=== PATIENT | male | born 1960 | race Caucasian/White ===

== ENCOUNTER 2018-01-04 13:21 | Emergency (ER) | payer OTHER ==
[2018-01-04 13:27] VITALS: BP 140/71
[2018-01-04] MEDS ORDERED: TETANUS/DIPHTHERIA/PERTUSSIS 0.5 ML SYRINGE IM ONE (14:31)
--- NOTE | 2018-01-04 14:32 | ED Physician Documentation ---
PD HPI HEAD INJURY - Stated complaint Stated Complaint: HEAD LAC - Chief complaint Chief Complaint: Laceration - History obtained from History obtained from: Patient - History of Present Illness Mechanism of head injury: Other (stood up and hit head on edge of mantle) Where head injury occurred: Home Timing - onset: How many hours ago (1) Pain level max: 4 Pain level now: 4 Location of injury: Top Quality of pain: Aching Associated symptoms: No: LOC, AMS, Amnesia, Nausea / vomiting, Neck pain, Paresthesias, Seizures, Ear drainage, Nasal drainage Symptoms improve with: Rest Symptoms worsen with: Palpation Contributing factors: No: Anticoagulated, Intoxicated Similar symptoms before: Has not had sx before Recently seen: Not recently seen Review of Systems Constitutional: denies: Fever, Chills Respiratory: denies: Cough GI: denies: Vomiting, Diarrhea Skin: denies: Rash Musculoskeletal: denies: Neck pain, Back pain Neurologic: denies: Focal weakness, Numbness, Altered mental status, LOC PD PAST MEDICAL HISTORY - Past Medical History Past Medical History: Yes Cardiovascular: High cholesterol Respiratory: None Endocrine/Autoimmune: None GI: None : None HEENT: None Psych: None Musculoskeletal: Chronic back pain, Other Derm: None - Past Surgical History Past Surgical History: Yes General: Hiatal hernia repair HEENT: Tonsil/Adenoidectomy - Present Medications Home Medications: Ambulatory Orders Medication Instructions Recorded Confirmed Aspirin 01/04/18 Furosemide [Lasix] 01/04/18 Metoprolol Succinate 50 mg PO 01/04/18 01/04/18 Valsartan [Diovan] 01/04/18 - Allergies Allergies/Adverse Reactions: Allergies Allergy/AdvReac Type Severity Reaction Status Date / Time No Known Drug Allergies Allergy Verified 01/04/18 13:27 - Social History Does the pt smoke?: No Smoking Status: Never smoker Does the pt drink ETOH?: Yes ETOH Use: Beer, Liquor Does the pt have substance abuse?: No - Immunizations Immunizations are current?: Yes Immunizations: TDAP current <10years - POLST Patient has POLST: No PD ED PE NORMAL - Vitals Vital signs reviewed: Yes - General General: Alert and oriented X 3, No acute distress - HEENT HEENT: PERRL, EOMI, Moist mucous membranes, Other (2cm linear laceration to top of head. No scalp hematomas. No palpable skull fractures) - Neck Neck: Supple, no meningeal sign, No bony TTP - Cardiac Cardiac: RRR - Respiratory Respiratory: No respiratory distress, Clear bilaterally - Derm Derm: Warm and dry - Neuro Neuro: Alert and oriented X 3, toeing stockings 2-12 intact, No motor deficit, No sensory deficit Eye Opening: Spontaneous Motor: Obeys Commands Verbal: Oriented GCS Score: 15 Results - Vitals Vitals: Vital Signs - 24 hr 01/04/18 13:24 Temperature 36.5 C Heart Rate 58 L Respiratory 20 Rate Blood Pressure 140/71 H O2 Saturation 100 Oxygen O2 Source Room air Procedures - Laceration (location) scalp Length in cm: 2 Wound type: Linear, Into subcut fat Neurovascular status: Sensory intact, Vascular intact Wound Preparation: Irrigated copiously NS Skin layer closure: Alexa (2) Other: Patient tolerated well, No complications, Tetanus UTD Complexity: Simple PD MEDICAL DECISION MAKING - ED course Complexity details: considered differential, d/w patient ED course: Patient with a scalp laceration. Repaired with alexa. Tolerated well. Tetanus is up-to-date. No evidence of intracranial hemorrhage or skull fracture that required intervention or repair. Head injury instructions given at bedside. Warnings of infection and instructions on wound care given at bedside. Patient counseled regarding signs and symptoms for which I believe and urgent re-evaluation would be necessary. Patient with good understanding of and agreement to plan and is comfortable going home at this time This document was made in part using voice recognition software. While efforts are made to proofread this document, sound alike and grammatical errors may occur. - Sepsis Event Vital Signs: Vital Signs - 24 hr 01/04/18 13:24 Temperature 36.5 C Heart Rate 58 L Respiratory 20 Rate Blood Pressure 140/71 H O2 Saturation 100 Oxygen O2 Source Room air Departure - Departure Disposition: 01 Home, Self Care Clinical Impression: Scalp laceration Qualifiers: Encounter type: initial encounter Qualified Code(s): S01.01XA - Laceration without foreign body of scalp, initial encounter Condition: Good Instructions: ED Laceration Scalp Stitch Or Stap Follow-Up: ANGEL ROUSSEAU [Primary Care Provider] - (in 10-14 days for staple removal) Comments: Follow-up with your doctor in 10-14 days for staple removal. Return if you worsen. Return especially for redness, swelling or drainage from the wound. Discharge Date/Time: 01/04/18 14:47
== END 2018-01-04 14:47 | disposition home or self-care (01) ==
LOC: ED 13:21
DX: S01.01XA Laceration without foreign body of scalp, initial encounter (principal); W22.8XXA Striking against or struck by other objects, initial encounter; Y93.89 Activity, other specified; Y92.009 Unspecified place in unspecified non-institutional (private) residence as the place of occurrence of the external cause
CPT/HCPCS: 12001; 90471; 99282; 99283

== ENCOUNTER 2018-12-09 10:54 | Observation (INO) | payer OTHER ==
--- NOTE | 2018-12-09 11:20 | ED Physician Documentation ---
PD HPI SYNCOPE - Stated complaint Stated Complaint: NEAR SYNCOPE - Chief complaint Chief Complaint: Neuro - History obtained from History obtained from: Patient - History of Present Illness Witnessed: Unwitnessed Timing - onset: Last night Duration: Unknown Preceding symptoms: Light headed, Generalized weakness, Other (He states he did notice his blood pressure to be lower than usual at 88 systolic prior to going to bed last night. He states his blood pressures typically 110 systolic. Sometimes it will be even to 100.). No: Headache, Chest pain, Abdominal pain Associated symptoms: No: Headache, Chest pain, Palpitations, Nausea / vomiting, Abdominal pain Contributing factors: Recent med change (He was started on spironolactone about 3 weeks ago by his manager gaming. They have been watching electrolytes and kidney function. He had a creatinine and chemistry done just about a week ago and his creatinine was 1.4 and potassium was 4.1.) Injury occurred: No: Head injury, Neck injury Similar symptoms before: No diagnosis (He states he had a near syncopal episode about a week ago after getting up from bed in the [place] to go to the bathroom. He felt okay the next day.) Review of Systems Constitutional: denies: Fever, Chills Nose: denies: Rhinorrhea / runny nose, Congestion Throat: denies: Sore throat Cardiac: denies: Chest pain / pressure, Palpitations, Pedal edema, Calf pain Respiratory: reports: Dyspnea (some exertional). denies: Cough GI: reports: Nausea. denies: Abdominal Pain, Vomiting Neurologic: reports: Generalized weakness. denies: Focal weakness, Numbness, Altered mental status, Headache PD PAST MEDICAL HISTORY - Past Medical History Past Medical History: Yes Cardiovascular: Congestive heart failure (Cardiomyopathy of uncertain cause. No occlusive heart disease. He is most recent echocardiogram he states was a month or 2 ago and was 24% ejection fraction.), High cholesterol, Other (LBBB) Respiratory: None Endocrine/Autoimmune: None GI: None : None HEENT: None Psych: None Musculoskeletal: Chronic back pain, Other Derm: None - Past Surgical History Past Surgical History: Yes General: Hiatal hernia repair HEENT: Tonsil/Adenoidectomy - Present Medications Home Medications: Ambulatory Orders Medication Instructions Recorded Confirmed Aspirin 81 mg PO DAILY 01/04/18 12/09/18 Furosemide [Lasix] 40 mg PO DAILY 01/04/18 12/09/18 Metoprolol Succinate 50 mg PO DAILY 01/04/18 12/09/18 Valsartan [Diovan] 80 mg PO DAILY 01/04/18 12/09/18 Atorvastatin Calcium 40 mg PO QPM 12/09/18 12/09/18 Spironolactone 12.5 mg PO DAILY 12/09/18 12/09/18 - Allergies Allergies/Adverse Reactions: Allergies Allergy/AdvReac Type Severity Reaction Status Date / Time No Known Drug Allergies Allergy Verified 12/09/18 11:10 - Social History Does the pt smoke?: No Smoking Status: Never smoker Does the pt drink ETOH?: Yes Does the pt have substance abuse?: No - Immunizations Immunizations are current?: Yes Immunizations: TDAP current <10years - POLST Patient has POLST: No PD ED PE NORMAL - Vitals Vital signs reviewed: Yes - General General: Alert and oriented X 3, No acute distress, Well developed/nourished - HEENT HEENT: Atraumatic, Pharynx benign - Neck Neck: Supple, no meningeal sign, No adenopathy, No JVD - Cardiac Cardiac: RRR, No murmur - Respiratory Respiratory: Clear bilaterally - Abdomen Abdomen: Soft, Non tender - Back Back: No CVA TTP - Derm Derm: Normal color, Warm and dry - Extremities Extremities: No deformity, No tenderness to palpate, Normal ROM s pain, No edema, No calf tenderness / cord - Neuro Neuro: Alert and oriented X 3, No motor deficit, Normal speech Eye Opening: Spontaneous Motor: Obeys Commands Verbal: Oriented GCS Score: 15 Results - Vitals Vitals: Vital Signs - 24 hr 12/09/18 12/09/18 12/09/18 11:06 11:40 12:13 Temperature 36.7 C 36.6 C Heart Rate 66 65 Heart Rate [ 69 Sitting] Heart Rate [ 85 Standing] Heart Rate [ 67 Supine] Respiratory 14 15 Rate Blood Pressure 154/73 H 130/85 H Blood Pressure 122/73 [Sitting] Blood Pressure 120/73 [Standing] Blood Pressure 122/73 [Supine] O2 Saturation 99 99 Oxygen O2 Source Room air - EKG (time done) 11:00 Rate: Rate (enter#) (67) Rhythm: NSR [place]: Normal Intervals: LBBB Ischemia: Normal ST segments, Non specific changes Compare to prior EKG: Unchanged from prior EKG - Labs Labs: Laboratory Tests 12/09/18 12/09/18 12/09/18 12:03 12:03 12:03 WBC 7.6 RBC 4.47 L Hgb 15.3 Hct 44.9 MCV 100.4 H MCH 34.2 H MCHC 34.1 RDW 12.1 Plt Count 203 MPV 9.8 Neut # (Auto) 4.7 Lymph # (Auto) 1.5 Butler # (Auto) 0.7 Eos # (Auto) 0.5 Baso # (Auto) 0.1 Absolute Nucleated RBC 0.00 Nucleated RBC % 0.0 Sodium 134 L Potassium 5.3 H Chloride 93 L Carbon Dioxide 25 Anion Gap 16.0 H BUN 73 H Creatinine 3.6 H Estimated GFR (MDRD) 17 L Glucose 105 H Calcium 9.4 Magnesium 2.4 Total Bilirubin 1.1 H AST 31 ALT 28 Alkaline Phosphatase 68 Troponin I B-Natriuretic Peptide Total Protein 8.3 H Albumin 4.9 Globulin 3.4 Albumin/Globulin Ratio 1.4 Lipase 87 H 12/09/18 12/09/18 12:03 12:03 WBC RBC Hgb Hct MCV MCH MCHC RDW Plt Count MPV Neut # (Auto) Lymph # (Auto) Butler # (Auto) Eos # (Auto) Baso # (Auto) Absolute Nucleated RBC Nucleated RBC % Sodium Potassium Chloride Carbon Dioxide Anion Gap BUN Creatinine Estimated GFR (MDRD) Glucose Calcium Magnesium Total Bilirubin AST ALT Alkaline Phosphatase Troponin I 0.07 B-Natriuretic Peptide 49 Total Protein Albumin Globulin Albumin/Globulin Ratio Lipase PD MEDICAL DECISION MAKING - ED course Complexity details: reviewed results, considered differential, d/w patient, d/w datastage consultant (I talked with on-call cardiology from the [facility], [place] who suggested the patient should be hospitalized for correction of the creatinine. This reinforced at for the patient to is agreeable. Recommendation from cardiology was to stop the spironolactone, hold the valsartan for 1 to 2 days and decrease the furosemide in half. Resume the valsartan as he is doing better and his kidney function improves.) Departure - Departure Disposition: ED Place in Observation Clinical Impression: Syncope Acute renal failure (ARF) Qualifiers: Acute renal failure type: unspecified Qualified Code(s): N17.9 - Acute kidney failure, unspecified Condition: Stable Record reviewed to determine appropriate education?: Yes Discharge Date/Time: 12/09/18 14:49
[2018-12-09 12:13] LABS: BASOPHILS # (AUTO) 0.1 10^3/uL (0.0-0.1); BASOPHILS % (AUTO) 1.2 %; EOSINOPHILS # (AUTO) 0.5 10^3/uL (0.0-0.7); HGB - HEMOGLOBIN 15.3 g/dL (14.0-18.0); LYMPHOCYTES # (AUTO) 1.5 10^3/uL (1.5-3.5); LYMPHOCYTES % (AUTO) 20.2 %; MEAN CORPUSCULAR HEMOGLOBIN 34.2 pg (27.0-31.0); MEAN CORPUSCULAR HGB CONC 34.1 g/dL (32.0-36.0); MEAN CORPUSCULAR VOLUME 100.4 fL (80.0-94.0); MEAN PLATELET VOLUME 9.8 fL (7.4-11.4); MONOCYTES # (AUTO) 0.7 10^3/uL (0.0-1.0); MONOCYTES % (AUTO) 9.4 %; NEUTROPHILS # (AUTO) 4.7 10^3/uL (1.5-6.6); NEUTROPHILS % (AUTO) 61.9 %; PLT - PLATELET COUNT 203 10^3/uL (130-450); RED BLOOD COUNT 4.47 10^6/uL (4.70-6.10); RED CELL DISTRIBUTION WIDTH 12.1 % (12.0-15.0); WHITE BLOOD COUNT 7.6 x10^3/uL (4.8-10.8)
[2018-12-09] MEDS ORDERED: SODIUM CHLORIDE 0.9% 1,000 ML IV ONE ×2 (12:13→13:22)
[2018-12-09 12:23] LABS: ALBUMIN 4.9 g/dL (3.2-5.5); ALBUMIN/GLOBULIN RATIO 1.4 (1.0-2.2); BILIRUBIN,TOTAL 1.1 mg/dL (0.2-1.0); CALCIUM 9.4 mg/dL (8.5-10.3); CREATININE 3.6 mg/dL (0.6-1.2); TOTAL PROTEIN 8.3 g/dL (6.7-8.2)
[2018-12-09] MEDS ORDERED: SODIUM CHLORIDE FLUSH 0.9% 10 ML SYRINGE IVP PRN (14:01)
--- NOTE | 2018-12-09 14:05 | HISTORY & PHYSICAL EXAMINATION ---
Chief Complaint - Chief Complaint Chief Complaint: syncope History of Present Illness - Admitted From Admitted From:: ED - History Obtained From Records Reviewed: yes History obtained from: chart review, patient Exam Limitations: none - History of Present Illness HPI Comment/Other: Aamir Fallon is a 58-year old male with a past medical history of idiopathic cardiomyopathy, chronic systolic CHF, left BBB, CAD, hypertension, h yperlipidemia, chronic back pain, cervical spine DJD, BPH with nocturia, and history of left inguinal hernia repair. The patient was brought to the ED via private car after passing out, including two episodes. He states this morning he was getting out of bed to go to the bathroom when he began to feel like he was going to "pass out" and then he woke up on the floor. Upon arrival the patient's initial presentation was that he was oriented x4, respirations were even and non labored, skin was warm and dry, denies hitting head. The patient notes that he was just seen at [facility] on 11/16/2018 and was started on Spironolactone and soon after that had his first syncopal episode in which he completely lost consciousness. He has also had muscle cramps, tremors, and more lethargy. In both episodes of passing out, he took a tylenol PM the night before bed. Labs showed MARY ANNE with an elevated creatinine of 3.6 (baseline creatinine is 1.08), GFR of 17, BUN of 73, and a potassium of 5.3. Troponin was 0.07. Vital signs were insignificant with a blood pressure of 154/73, a heart rate 66, respiratory rate of 14, a temp of 36.7 C, and an oxygen saturation of 99% on room air. Upon my exam, the patient had been given 1L of normal saline and reluctantly was agreeable to a one night stay. He was admitted to observation to hold diuretics, and check serial labs. History - Past Medical History Cardiovascular: reports: Congestive heart failure, Hypertension, High cholesterol, Coronary artery disease, Other (idiopathic cardiomyopathy) Respiratory: reports: None Neuro: reports: None Endocrine/Autoimmune: reports: None GI: reports: None BUSHLER: reports: None : reports: Benign prostate hypertrophy, Nocturia HEENT: reports: None Psych: reports: None Musculoskeletal: reports: Chronic back pain, Other Derm: reports: None MRSA Hx?: No - Past Surgical History General: reports: Hiatal hernia repair HEENT: reports: Tonsil/Adenoidectomy - Family & Social History Family History: Mother: Alive and Well, Father: , Diabetes, Type 2, Re nal Disease/Failure, Sister: , Brother: Alive and Well, CAD Family History Comment/Other: Father: MARY ANNE, DM- . Mother: alive and well, age 84. Brother: alive and well, history of CAD. Sister: at age 27, for unknown causes Living arrangement: At home Living Situation: With spouse/s.o. Social History Notes: The patient is retired and lives with his , Delfin. He has no children and no pets. Since being retired he stays very busy around the house, and still drives a car. He admits to occassional alcohol use, smoked cigarettes from [id number], and denies illicit drug use. He wishes to be a FULL code. - Substance History Use: Uses substance without health or social issues: NONE Abuse: Recurrent use of substance despite neg consequences: NONE Dependence: Experiences withdrawal or developed tolerances: NONE - POLST Patient has POLST: No POLST Status: Full Code Meds/Allgy - Home Medications Home Medications: Ambulatory Orders Medication Instructions Recorded Confirmed Aspirin 81 mg PO DAILY 01/04/18 12/09/18 Furosemide [Lasix] 40 mg PO DAILY 01/04/18 12/09/18 Metoprolol Succinate 50 mg PO DAILY 01/04/18 12/09/18 Valsartan [Diovan] 80 mg PO DAILY 01/04/18 12/09/18 Atorvastatin Calcium 40 mg PO QPM 12/09/18 12/09/18 Spironolactone 12.5 mg PO DAILY 12/09/18 12/09/18 - Allergies Allergies/Adverse Reactions: Allergies Allergy/AdvReac Type Severity Reaction Status Date / Time No Known Drug Allergies Allergy Verified 12/09/18 11:10 Review of Systems - Constitutional Constitutional: reports: Fatigue, Weakness, Poor appetite, Weight loss - Eyes Eyes: reports: Vision loss, Corrective lenses - Ears, Nose & Throat Ears, Nose & Throat: reports: Postnasal drainage - Cardiovascular Cariovascular: reports: Edema, Lightheadedness, Syncope, Exertional dyspnea, Decr. exercise tolerance - Respiratory Respiratory: reports: SOB at rest, SOB with exertion - Gastrointestinal Gastrointestinal: reports: Abdominal distention, Reflux/heartburn, Bloating, Poor appetite - Genitourinary Genitourinary: reports: Dysuria, Nocturia - Musculoskeletal Musculoskeletal: reports: Back pain, Muscle weakness - Integumentary Integumentary: reports: Dryness - Neurological Neurological: reports: General weakness, Dizziness, Memory problems, Pre- existing deficit - Psychiatric Psychiatric: reports: Depression - All Other Systems All Other Systems: reports: Reviewed and negative Prior Level of Functionality: Independent, no cane or walker, 2 recent falls, but clearly from dehydration Exam - Vital Signs Reviewed Vital Signs: Yes Vital Signs: Vital Signs x48h Temp Pulse Pulse Pulse Pulse Resp BP 12/09/18 12:13 69 85 67 12/09/18 11:40 36.6 C 65 15 130/85 H 12/09/18 11:06 36.7 C 66 14 154/73 H BP BP BP Pulse Ox 12/09/18 12:13 122/73 120/73 122/73 12/09/18 11:40 99 12/09/18 11:06 99 - Physical Exam General Appearance: positive: No acute distress, Alert Eyes Bilateral: positive: PERRL ENT: positive: ENT inspection nml, Pharynx nml, Dry mucous membranes Neck: positive: Thyroid nml, No JVD, Trachea midline Respiratory: positive: Chest non-tender, No respiratory distress, Breath sounds nml Cardiovascular: positive: No gallop, Irregularly irregular, Systolic murmur, Decreased pulse(s) Peripheral Pulses: positive: 1+ Abdomen: positive: Non-tender, Nml bowel sounds, Hepatomegaly Back: positive: Nml inspection Skin: positive: Color nml, No rash, Warm, Dry Extremities: positive: Non-tender, Full ROM, Pedal edema Neurologic/Psychiatric: positive: Oriented x3, CN's nml (2-12), Motor nml, Sensation nml, Mood/affect nml Reflexes: Bicep (R): 3+, Bicep (L): 3+ Conclusion/Plan - Problem List (1) Acute renal failure (ARF) Conclusion/Plan: - Baseline creatinine is 1.08 from 10/21/2018 - Now creatinine is 3.6 on this admission since starting Spironolactone on 11/16/2018, hyperkalemia of 5.3, GFR down to only 17 - 2 episodes of syncope and collapse, likely as a result of poor brain perfusion leading to syncope and collapse (intra-vascular depletion) - Patient and nursing told about measuring urine (please) Plan: No further IV fluids, monitor on telemetry, HOLD ARB/diuretics, STRICT I/O Qualifiers: Acute renal failure type: unspecified Qualified Code(s): N17.9 - Acute kidney failure, unspecified (2) Syncope and collapse Conclusion/Plan: - 2 episodes of syncope and collapse, likely as a result of poor brain perfusion leading to syncope and collapse (intra-vascular depletion) - Since etiology is clear, no further work up, no head imaging - Orthostatic VSs charted appear normal Plan: Continue to HOLD ARB/diuretics, fall precautions (3) Chronic systolic heart failure, ACC/AHA stage C Conclusion/Plan: - Last saw primary cardiology on 11/16/2018 and was started on Spironolactone - Also medically managed with metoprolol XL, ASA, Losartan, furosemide, and statin - Last echo was on 11/15/18 showing an EF of 25%, global hypokinesis - Upcoming BiV-ICD planned for ~ February 2019 Plan: continue to hold ARB/diuretics, telemetry, and resume after MARY ANNE is resolved (4) Left bundle branch block (LBBB) Conclusion/Plan: - Known history of this and confirmed on EKG Plan: Continue to treat MARY ANNE, resume HF meds when appropriate (5) Low back pain Conclusion/Plan: - No chronic narcotics have been prescribed - Patient states that he just tries to stay active (6) Nocturia associated with benign prostatic hyperplasia Conclusion/Plan: - Admits to getting up around 2-3 times per night Plan: I/O while here - Lab Results Lab results reviewed: Yes Stephon Bones: 12/10/18 05:17 12/10/18 05:17 Core Measures - Anticipated LOS I expect patient to be DC'd or transferred within 96 hours.: Yes - DVT/VTE - Prophylaxis VTE/DVT Device ordered at admit?: Yes VTE/DVT Prophylaxis med ordered at admit?: Yes - Stroke - Rehab Assessment Rehab services assessment to be ordered?: No Not Ordered - Medical Reason: Contraindicated - AMI - Statin at Admit Aspirin Prescribed on Admit: Yes
[2018-12-09] MEDS: SODIUM CHLORIDE FLUSH 0.9% 10 ML SYRINGE IVP SCH ×2 (16:27→23:52)
[2018-12-09 20:43] LABS: CALCIUM 9.1 mg/dL (8.5-10.3); CREATININE 3.1 mg/dL (0.6-1.2)
[2018-12-09] MEDS ORDERED: ATORVASTATIN 40 MG TABLET PO SCH (21:00)
[2018-12-09] MEDS: HEPARIN 5,000 UNIT/ML VIAL SUBQ SCH (21:14)
[2018-12-09] MEDS ORDERED: traZODone 50 MG TABLET PO ONE (23:16)
[2018-12-10 06:12] LABS: BASOPHILS % (AUTO) 0.9 %; EOSINOPHILS % (AUTO) 14.1 %; HGB - HEMOGLOBIN 13.4 g/dL (14.0-18.0); LYMPHOCYTES % (AUTO) 30.5 %; MEAN CORPUSCULAR HEMOGLOBIN 33.8 pg (27.0-31.0); MEAN CORPUSCULAR HGB CONC 33.8 g/dL (32.0-36.0); MEAN PLATELET VOLUME 10.2 fL (7.4-11.4); MONOCYTES % (AUTO) 7.4 %; PLT - PLATELET COUNT 163 10^3/uL (130-450); RED BLOOD COUNT 3.97 10^6/uL (4.70-6.10); RED CELL DISTRIBUTION WIDTH 12.2 % (12.0-15.0); WHITE BLOOD COUNT 7.5 x10^3/uL (4.8-10.8)
[2018-12-10 06:16] LABS: ABNORMAL LYMPHS % (MANUAL) 0 %; BAND NEUTROPHILS % (MANUAL) 0 %
[2018-12-10 06:24] LABS: ALBUMIN/GLOBULIN RATIO 1.4 (1.0-2.2); BILIRUBIN,TOTAL 1.2 mg/dL (0.2-1.0); CALCIUM 8.9 mg/dL (8.5-10.3); CREATININE 2.3 mg/dL (0.6-1.2); MAGNESIUM 2.3 mg/dL (1.7-2.8); TOTAL PROTEIN 6.9 g/dL (6.7-8.2)
[2018-12-10 06:30] LABS: EOSINOPHILS # (MANUAL) 1.7 10^3/uL (0-0.7); LYMPHOCYTES # (MANUAL) 2.5 10^3/uL (1.5-3.5); LYMPHOCYTES % (MANUAL) 33 %; MONOCYTES # (MANUAL) 0.2 10^3/uL (0.0-1.0); NEUTROPHILS # (MANUAL) 3.1 10^3/uL (1.5-6.6); NEUTROPHILS % (MANUAL) 41 %
[2018-12-10 06:31] LABS: DIFFERENTIAL COMMENT MANUAL DIFFERENTIAL; PLATELET ESTIMATE, MANUAL NORMAL (130-450,000) (NORMAL); RBC MORPHOLOGY (MULTIPLE) NORMAL APPEARANCE (NORMAL)
[2018-12-10 08:40] VITALS: BP 103/62
--- NOTE | 2018-12-10 08:40 | Discharge Plan ---
Discharge Plan Problem Reviewed?: Yes Disposition: Home, Self Care Condition: Good Diet: Cardiac Activity Restrictions: No Restrictions Shower Restrictions: No Driving Restrictions: No Instruction Topics: Heparin injection, Spironolactone tablets, Kidney Probs, Injury Acute Kidney Dc, Fluids Limiting Dc Health Concerns: Acute kidney injury CHF- idiopathic, systolic Upcoming ICD (Bi-Ventricular) placement Plan of Treatment: Skip diuretics today and take your beta kenan (metoprolol) later today if your blood pressure allows- Systolic (the top number) greater than 110 Resume only one diuretic tomorrow, alternating with every other day schedule of Spironolactone, then lasix, then Spironolactone, then lasix, and so on... Resume the Losartan on Thursday at 1/2 the dose, as long as your systolic reading is greater than 110 Get your labs checked on ThursdayDecember 13 See cardiology or PCP within one week Care Goals: Avoid hospital stays or visits to the ED Prevent falls Preserve kidney function Medically manage your heart failure Undergo a Bi-Ventricular ICD placement Assessment: You had been falling after loosing consiousness at home and were found to be in kidney failure when arriving to the hospital. You were given a 1L IV fluid bag, and your nephro-toxic agents (kidney) were on HOLD. Your creatinine baseline (on a normal day) is about 1.08, and upon arrival it was increased to 3.6, that nicely corrected to 2.3 today. Since you have shown compliance with your heart condition, you are safe to return home today as long as you follow recommendations of only resuming diuretics tomorrow with alternating dosing. You are a great candidate for cardiac rehab, and this referral has been made. Please see a health care provider within one week. Follow-Up Care: [facility] - Cardiac No Smoking: If you smoke, Please STOP! Call for help. Follow-up with: Cherelle Goldman PA-C [Primary Care Provider] -
--- NOTE | 2018-12-10 08:55 | DISCHARGE SUMMARY ---
Discharge Summary Admit Date: 12/09/18 Discharge Date: 12/10/18 Discharging Provider: CHARLOTTE Diaz Primary Care Provider: Arnold Guillermo Code Status: Attempt Resuscitation Condition at Discharge: Good Discharge Disposition: 01 Home, Self Care - DIAGNOSES Admission Diagnoses: ARF (acute renal failure) Syncope and collapse Acute on chronic systolic CHF, NYHA class 2 and ACC/AHA stage C History of left bundle branch block (LBBB) Low back pain Nocturia associated with benign prostatic hyperplasia Discharge Diagnoses with Status of Each Condition: ARF (acute renal failure)- Improved, expected to return to baseline based on rate of improvement. 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- chronic, stable Chronic systolic CHF, NYHA class 2 and ACC/AHA stage C- chronic, stable History of left bundle branch block (LBBB)- chronic, stable Low back pain- chronic, stable Nocturia associated with benign prostatic hyperplasia- chronic, stable Encounter for cardiac rehabilitation- new referral has been made - HPI History of Present Illness: Aamir Fallon is a 58-year old male with a past medical history of idiopathic cardiomyopathy, chronic systolic CHF, left BBB, CAD, hypertension, hyperlipidemia, chronic back pain, cervical spine DJD, BPH with nocturia, and history of left inguinal hernia repair. The patient was brought to the ED via private car after passing out, including two episodes. He states this morning he was getting out of bed to go to the bathroom when he began to feel like he was going to "pass out" and then he woke up on the floor. Upon arrival the patient's initial presentation was that he was oriented x4, respirations were even and non labored, skin was warm and dry, denies hitting head. The patient notes that he was just seen at [facility] on 11/16/2018 and was started on Spironolactone and soon after that had his first syncopal episode in which he completely lost consciousness. He has also had muscle cramps, tremors, and more lethargy. In both episodes of passing out, he took a tylenol PM the night before bed. Labs showed MARY ANNE with an elevated creatinine of 3.6 (baseline creatinine is 1.08), GFR of 17, BUN of 73, and a potassium of 5.3. Troponin was 0.07. Vital signs were insignificant with a blood pressure of 154/73, a heart rate 66, respiratory rate of 14, a temp of 36.7 C, and an oxygen saturation of 99% on room air. Upon my exam, the patient had been given 1L of normal saline and reluctantly was agreeable to a one night stay. He was admitted to observation to hold diuretics, and check serial labs. - ALLERGIES Allergies/Adverse Reactions: Allergies Allergy/AdvReac Type Severity Reaction Status Date / Time No Known Drug Allergies Allergy Verified 12/09/18 11:10 - MEDICATIONS Home Medications: Ambulatory Orders Medication Instructions Recorded Confirmed Aspirin 81 mg PO DAILY 01/04/18 12/09/18 Metoprolol Succinate 50 mg PO DAILY 01/04/18 12/09/18 Valsartan [Diovan] 80 mg PO DAILY 01/04/18 12/09/18 Atorvastatin Calcium 40 mg PO QPM 12/09/18 12/09/18 Furosemide [Lasix] 40 mg PO Q48H #30 tab 12/10/18 12/09/18 Spironolactone 12.5 mg PO Q48H #15 tab 12/10/18 12/09/18 - PHYSICAL EXAM AT DISCHARGE General Appearance: positive: No acute distress, Alert Eyes Bilateral: positive: PERRL ENT: positive: Pharynx nml, No signs of dehydration Neck: positive: Thyroid nml, No JVD, Trachea midline Respiratory: positive: Chest non-tender, No respiratory distress, Breath sounds nml Cardiovascular: positive: Regular rate & rhythm, No gallop, Systolic murmur Peripheral Pulses: positive: 1+ Abdomen: positive: Non-tender, Nml bowel sounds Back: positive: Nml inspection Skin: positive: Color nml, No rash, Warm, Dry Extremities: positive: Non-tender, Full ROM, Nml appearance, Pedal edema Neurologic/Psychiatric: positive: Oriented x3, CN's nml (2-12), Motor nml, Sensation nml, Mood/affect nml Reflexes: Bicep (R): 3+, Bicep (L): 3+ - LABS Result Diagrams: 12/10/18 05:17 12/10/18 05:17 - FOLLOW UP Follow Up: Disposition: Home Condition: Good Health Concerns: Acute kidney injury, CHF- idiopathic, systolic, Upcoming ICD (Bi-Ventricular) placement Plan of Treatment: Skip diuretics today and take your beta kenan (metoprolol) later today if your blood pressure allows- Systolic (the top number) greater than 110 Resume only one diuretic tomorrow, alternating with every other day schedule of Spironolactone, then lasix, then Spironolactone, then lasix, and so on... Resume the Losartan on Thursday at 1/2 the dose, as long as your systolic reading is greater than 110 Get your labs checked on ThursdayDecember 13 See cardiology or PCP within one week Care Goals: Avoid hospital stays or visits to the ED, Prevent falls, Preserve kidney function, Medically manage your heart failure, Undergo a Bi-Ventricular ICD placement Assessment: You had been falling after loosing consiousness at home and were found to be in kidney failure when arriving to the hospital. You were given a 1L IV fluid bag, and your nephro-toxic agents (kidney) were on HOLD. Your creatinine baseline (on a normal day) is about 1.08, and upon arrival it was increased to 3.6, that nicely corrected to 2.3 today. Since you have shown compliance with your heart condition, you are safe to return home today as long as you follow recommendations of only resuming diuretics tomorrow with alternating dosing. You are a great candidate for cardiac rehab, and this referral has been made. Please see a health care provider within one week. Follow-Up Care: [facility] - Cardiac - TIME SPENT Time Spent in Discharge (Minutes): 45
[2018-12-10] MEDS ORDERED: POLYETHYLENE GLYCOL 3350 17 GM PACKET PO SCH (09:00)
[2018-12-10] MEDS ORDERED: METOPROLOL SUCCINATE 50 MG TABLET PO SCH (09:00)
[2018-12-10] MEDS ORDERED: ASPIRIN CHEW 81 MG TABLET PO SCH (09:00)
[2018-12-10] MEDS: HEPARIN 5,000 UNIT/ML VIAL SUBQ SCH (09:24)
[2018-12-10] MEDS ORDERED: traZODone 50 MG TABLET PO SCH (21:00)
== END 2018-12-10 10:28 | disposition home or self-care (01) ==
LOC: ED 10:54 → MS2 14:01
PROVIDERS: ADMIT Nurse Practitioner; ATTEND Nurse Practitioner
DX: N17.9 Acute kidney failure, unspecified (principal); E86.0 Dehydration; R55 Syncope and collapse; E87.5 Hyperkalemia; T50.0X5A Adverse effect of mineralocorticoids and their antagonists, initial encounter; Y92.009 Unspecified place in unspecified non-institutional (private) residence as the place of occurrence of the external cause; I42.9 Cardiomyopathy, unspecified; I11.0 Hypertensive heart disease with heart failure; I50.22 Chronic systolic (congestive) heart failure; I25.10 Atherosclerotic heart disease of native coronary artery without angina pectoris; E78.5 Hyperlipidemia, unspecified; I44.7 Left bundle-branch block, unspecified; M54.5 Low back pain; G89.29 Other chronic pain; N40.1 Benign prostatic hyperplasia with lower urinary tract symptoms; R35.1 Nocturia; Z79.82 Long term (current) use of aspirin; Z79.899 Other long term (current) drug therapy; Z91.81 History of falling; Z87.891 Personal history of nicotine dependence
CPT/HCPCS: 36415; 80048; 80053; 83690; 83735; 83880; 84484; 85025; 93005; 96360; 96372; 99284; 99285; A9270; G0378; 84443

== ENCOUNTER 2019-02-20 16:32 | Emergency (ER) | payer OTHER ==
[2019-02-20] MEDS ORDERED: SODIUM CHLORIDE 0.9% 2,000 ML IV ONE (16:53)
--- NOTE | 2019-02-20 17:03 | ED Physician Documentation ---
History of Present Illness - Stated complaint Stated Complaint: DIZZY, WEAK - Chief complaint Chief Complaint: Cardiac - History obtained from History obtained from: Patient, Family - History of Present Illness Timing: Today Pain level max: 0 Pain level now: 0 - Additonal information Additional information: 59-year-old male states that he was visiting [place] this weekend. He states that he drank "more alcohol than he should have". He states that today he felt lightheaded and did not feel well. He states that he felt lightheaded while driving. No vertiginous symptoms. No palpitations. No chest pain. No shortness of breath. Better with lying down and worse with standing up Review of Systems Ten Systems: 10 systems reviewed and negative Constitutional: denies: Fever, Chills Respiratory: denies: Cough GI: denies: Abdominal Pain, Vomiting Skin: denies: Rash Musculoskeletal: denies: Neck pain, Back pain Neurologic: denies: Focal weakness, Numbness, Confused, Altered mental status, Headache PD PAST MEDICAL HISTORY - Past Medical History Past Medical History: Yes Cardiovascular: Congestive heart failure, Hypertension, High cholesterol, Coronary artery disease, Other (idiopathic cardiomyopathy) Respiratory: None Neuro: None Endocrine/Autoimmune: None GI: None 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 : Benign prostate hypertrophy, Nocturia HEENT: None Psych: None Musculoskeletal: Chronic back pain, Other Derm: None - Past Surgical History Past Surgical History: Yes General: Hiatal hernia repair HEENT: Tonsil/Adenoidectomy - Present Medications Home Medications: Ambulatory Orders Medication Instructions Recorded Confirmed Aspirin 81 mg PO DAILY 01/04/18 12/09/18 Metoprolol Succinate 50 mg PO DAILY 01/04/18 12/09/18 Valsartan [Diovan] 80 mg PO DAILY 01/04/18 12/09/18 Atorvastatin Calcium 80 mg PO QPM 12/09/18 12/09/18 Spironolactone 12.5 mg PO Q48H #15 tab 12/10/18 12/09/18 Furosemide [Lasix] 20 mg PO DAILY 02/20/19 - Allergies Allergies/Adverse Reactions: Allergies Allergy/AdvReac Type Severity Reaction Status Date / Time No Known Drug Allergies Allergy Verified 02/20/19 16:44 - Social History Does the pt smoke?: No Smoking Status: Never smoker Does the pt drink ETOH?: Yes Does the pt have substance abuse?: No - Immunizations Immunizations are current?: Yes Immunizations: TDAP current <10years - POLST Patient has POLST: No POLST Status: Full Code PD ED PE NORMAL - Vitals Vital signs reviewed: Yes - General General: Alert and oriented X 3, No acute distress, Well developed/nourished - HEENT HEENT: PERRL, Other (Dry lips and tongue) - Neck Neck: Supple, no meningeal sign - Cardiac Cardiac: RRR, Strong equal pulses - Respiratory Respiratory: No respiratory distress, Clear bilaterally - Abdomen Abdomen: Soft, Non tender, Non distended - Derm Derm: Warm and dry - Extremities Extremities: No edema - Neuro Neuro: Alert and oriented X 3 - Psych Psych: Normal mood, Normal affect - Free text exam Free text exam: Patient's heart rate was in the 80s at bedside, stood him up and his heart rate jumped to 105. He felt lightheaded during this. Results - Vitals Vitals: Vital Signs - 24 hr 02/20/19 02/20/19 02/20/19 16:39 17:53 19:11 Temperature 36.8 C Heart Rate 85 85 Heart Rate [ 78 Sitting] Heart Rate [ 82 Standing] Heart Rate [ 78 Supine] Respiratory 18 11 L Rate Blood Pressure 144/94 H 143/79 H Blood Pressure 150/84 H [Sitting] Blood Pressure 138/80 H [Standing] Blood Pressure 129/66 [Supine] O2 Saturation 97 96 02/20/19 19:18 Temperature 36.5 C Heart Rate 84 Heart Rate [ Sitting] Heart Rate [ Standing] Heart Rate [ Supine] Respiratory 17 Rate Blood Pressure 143/79 H Blood Pressure [Sitting] Blood Pressure [Standing] Blood Pressure [Supine] O2 Saturation 98 Oxygen O2 Source Room air - EKG (time done) 1643 Rate: Rate (enter#) (86) Rhythm: NSR [place]: Normal Intervals: Normal AK, LBBB Compare to prior EKG: Unchanged from prior EKG - Labs Labs: Laboratory Tests 02/20/19 02/20/19 02/20/19 16:41 17:00 17:00 WBC 12.0 H RBC 3.83 L Hgb 13.4 L Hct 38.2 L MCV 99.7 H MCH 35.0 H MCHC 35.1 RDW 13.9 Plt Count 167 MPV 9.2 Neut # (Auto) 10.1 H Lymph # (Auto) 1.0 L [place] # (Auto) 0.8 Eos # (Auto) 0.0 Baso # (Auto) 0.1 Absolute Nucleated RBC 0.00 Nucleated RBC % 0.0 Sodium 133 L Potassium 4.1 Chloride 91 L Carbon Dioxide 27 Anion Gap 15.0 H BUN 33 H Creatinine 1.6 H Estimated GFR (MDRD) 44 L Glucose 159 H POC Whole Bld Glucose 186 H Calcium 9.1 Total Bilirubin 1.2 H AST 38 ALT 29 Alkaline Phosphatase 69 Total Protein 7.6 Albumin 4.5 Globulin 3.1 Albumin/Globulin Ratio 1.5 Lipase 57 H Urine Color Urine Clarity Urine pH Ur Specific [place] Urine Protein Urine Glucose (UA) Urine Ketones Urine Occult Blood Urine Nitrite Urine Bilirubin Urine Urobilinogen Ur Leukocyte Esterase Ur Microscopic Review Urine Culture Comments Ethyl Alcohol 02/20/19 02/20/19 17:00 18:15 WBC RBC Hgb Hct MCV MCH MCHC RDW Plt Count MPV Neut # (Auto) Lymph # (Auto) [place] # (Auto) Eos # (Auto) Baso # (Auto) Absolute Nucleated RBC Nucleated RBC % Sodium Potassium Chloride Carbon Dioxide Anion Gap BUN Creatinine Estimated GFR (MDRD) Glucose POC Whole Bld Glucose Calcium Total Bilirubin AST ALT Alkaline Phosphatase Total Protein Albumin Globulin Albumin/Globulin Ratio Lipase Urine Color YELLOW Urine Clarity CLEAR Urine pH 7.5 Ur Specific [place] <=1.005 Urine Protein NEGATIVE Urine Glucose (UA) NEGATIVE Urine Ketones NEGATIVE Urine Occult Blood NEGATIVE Urine Nitrite NEGATIVE Urine Bilirubin NEGATIVE Urine Urobilinogen 0.2 (NORMAL) Ur Leukocyte Esterase NEGATIVE Ur Microscopic Review NOT INDICATED Urine Culture Comments NOT INDICATED Ethyl Alcohol 5.3 PD MEDICAL DECISION MAKING - ED course Complexity details: reviewed results, re-evaluated patient, considered differential, d/w patient ED course: 59-year-old male with what appears to be dehydration. Orthostatic upon presentation. Orthostatic basis resolved with 2 L of IV fluid. Symptoms resolved. Feels much better. No neurological deficits. Patient is well- appearing, nontoxic. Afebrile. No acute findings on EKG or telemetry. Patient counseled regarding signs and symptoms for which I believe and urgent re- evaluation would be necessary. Patient with good understanding of and agreement to plan and is comfortable going home at this time This document was made in part using voice recognition software. While efforts are made to proofread this document, sound alike and grammatical errors may o ccur. Departure - Departure Disposition: 01 Home, Self Care Clinical Impression: Dehydration Condition: Good Instructions: ED Dehydration Follow-Up: your,doctor as needed. [Other] Comments: Drink plenty of water. Return if you worsen. Follow-up with your doctor as needed Discharge Date/Time: 02/20/19 19:19
[2019-02-20 17:07] LABS: BASOPHILS # (AUTO) 0.1 10^3/uL (0.0-0.1); BASOPHILS % (AUTO) 0.5 %; HGB - HEMOGLOBIN 13.4 g/dL (14.0-18.0); MEAN CORPUSCULAR HGB CONC 35.1 g/dL (32.0-36.0); MEAN CORPUSCULAR VOLUME 99.7 fL (80.0-94.0); MEAN PLATELET VOLUME 9.2 fL (7.4-11.4); MONOCYTES # (AUTO) 0.8 10^3/uL (0.0-1.0); MONOCYTES % (AUTO) 6.5 %; NEUTROPHILS # (AUTO) 10.1 10^3/uL (1.5-6.6); NEUTROPHILS % (AUTO) 84.3 %; PLT - PLATELET COUNT 167 10^3/uL (130-450); RED BLOOD COUNT 3.83 10^6/uL (4.70-6.10); RED CELL DISTRIBUTION WIDTH 13.9 % (12.0-15.0)
[2019-02-20 17:18] LABS: ALBUMIN 4.5 g/dL (3.2-5.5); ALBUMIN/GLOBULIN RATIO 1.5 (1.0-2.2); BILIRUBIN,TOTAL 1.2 mg/dL (0.2-1.0); CALCIUM 9.1 mg/dL (8.5-10.3); CREATININE 1.6 mg/dL (0.6-1.2); TOTAL PROTEIN 7.6 g/dL (6.7-8.2)
[2019-02-20 18:21] LABS: BILIRUBIN,URINE NEGATIVE (NEGATIVE); GLUCOSE, URINE (UA) NEGATIVE (NEGATIVE); KETONES,URINE (UA) NEGATIVE (NEGATIVE); LEUKOCYTE ESTERASE, URINE NEGATIVE (NEGATIVE); NITRITE,URINE NEGATIVE (NEGATIVE); OCCULT BLOOD,URINE NEGATIVE (NEGATIVE); PH,URINE 7.5 PH (5.0-7.5); PROTEIN,URINE NEGATIVE (NEGATIVE); UROBILINOGEN,URINE 0.2 (NORMAL) E.U./dL (NORMAL)
[2019-02-20 18:23] LABS: CLARITY,URINE CLEAR (CLEAR)
[2019-02-20 19:12] VITALS: BP 143/79
== END 2019-02-20 19:19 | disposition home or self-care (01) ==
LOC: ED 16:32
DX: E86.0 Dehydration (principal)
CPT/HCPCS: 36415; 80053; 80320; 81001; 81003; 83690; 85025; 87086; 93005; 99283; 99284

== ENCOUNTER 2020-08-29 13:40 | Emergency (ER) | payer OTHER ==
[2020-08-29] MEDS ORDERED: ONDANSETRON 4 MG/2 ML VIAL IVP STA (14:00)
[2020-08-29] MEDS ORDERED: SODIUM CHLORIDE 0.9% 1,000 ML IV STA (14:00)
--- NOTE | 2020-08-29 14:03 | ED Physician Documentation ---
History of Present Illness - Stated complaint Stated Complaint: VOMITING/CHILLS - Chief complaint Chief Complaint: General - Additonal information Additional information: 60-year-old male presents the emergency department for evaluation of nausea, vomiting and diarrhea for the better part of 1 week. He reports that the symptoms began about 2 days after he received his initial COVID-19 vaccination. He has low-grade temperature elevation with chills. He denies abdominal pain, dysuria urgency or frequency. Denies sick contacts with anybody at home. No recent antibiotics. He denies that his output has been bloody. However over the last 2 days he is kept very little down including small sips of water. He tried Pepto-Bismol without relief of symptoms. Patient's past medical history is most significant for acute systolic congestive heart failure. He has a known left bundle branch block. He does have an AICD/pacer in place. Patient reports that his last echocardiogram showed an EF of 35%. Patient denies chest pain, shortness of air. He has no leg swelling. 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 White with [facility]. meds: Aspirin, metoprolol, Diovan, Aldactone Review of Systems Constitutional: reports: Chills. denies: Fever Eyes: reports: Reviewed and negative Ears: reports: Reviewed and negative Nose: reports: Reviewed and negative Throat: reports: Reviewed and negative Cardiac: reports: Reviewed and negative Respiratory: reports: Reviewed and negative GI: reports: Nausea, Vomiting, Diarrhea. denies: Abdominal Pain, Hematemesis, Bloody / black stool : reports: Reviewed and negative Skin: reports: Reviewed and negative Musculoskeletal: reports: Reviewed and negative Neurologic: reports: Reviewed and negative Psychiatric: reports: Reviewed and negative Endocrine: reports: Polydypsia PD PAST MEDICAL HISTORY - Past Medical History Cardiovascular: Congestive heart failure, Hypertension, High cholesterol, Coronary artery disease, Other (idiopathic cardiomyopathy) Respiratory: None Neuro: None Endocrine/Autoimmune: None GI: None TELETYPIST: None : Benign prostate hypertrophy, Nocturia HEENT: None Psych: None Musculoskeletal: Chronic back pain, Other Derm: None - Past Surgical History Past Surgical History: Yes General: Hiatal hernia repair HEENT: Tonsil/Adenoidectomy - Present Medications Home Medications: Ambulatory Orders Medication Instructions Recorded Confirmed Aspirin 81 mg PO DAILY 01/04/18 08/29/20 Metoprolol Succinate 25 mg PO DAILY 01/04/18 08/29/20 Valsartan [Diovan] 40 mg PO DAILY 01/04/18 08/29/20 Spironolactone 12.5 mg PO Q48H #15 tab 12/10/18 08/29/20 Atorvastatin Calcium [Lipitor] 80 mg DAILY 08/29/20 08/29/20 Ondansetron Odt [Zofran] 4 mg TL Q6H PRN #10 tablet 08/29/20 - Allergies Allergies/Adverse Reactions: Allergies Allergy/AdvReac Type Severity Reaction Status Date / Time No Known Drug Allergies Allergy Verified 02/20/19 16:44 - Social History Does the pt smoke?: No Smoking Status: Never smoker Does the pt drink ETOH?: Yes Does the pt have substance abuse?: No - Immunizations Immunizations are current?: Yes Immunizations: TDAP current <10years - POLST Patient has POLST: No POLST Status: Full Code PD ED PE EXPANDED - General General: Alert, No acute distress, Well developed/nourished - Cardiac Cardiac: Regular Rate, Murmur Present, Radial strong equal, Pedal strong equal, Cap refill < 2 sec - Respiratory Respiratory: Clear to ausultation raman. No: Distress, Labored - Abdomen Abdomen: Normal Bowel sounds. No: Tender to palpation, Rebound, Guarding - Derm Derm: Normal color, Warm and dry - Extremities Extremities: Normal. No: Deformity, Tenderness, Pedal edema bilateral, Right calf TTP/cord, Left calf TTP/cord - Neuro Neuro: Alert and Oriented X 3, CNII-XII intact - GCS Eye Opening: Spontaneous Motor: Obeys Commands Verbal: Oriented Total: 15 Results - Vitals Vitals: Vital Signs - 24 hr 08/29/20 13:43 Temperature 36.7 C Heart Rate 73 Respiratory 18 Rate Blood Pressure 190/81 H O2 Saturation 100 Oxygen O2 Source Room air - Labs Labs: Laboratory Tests 08/29/20 08/29/20 08/29/20 14:04 14:10 14:10 WBC 7.1 RBC 4.29 L Hgb 14.2 Hct 41.0 L MCV 95.6 H MCH 33.1 H MCHC 34.6 RDW 13.5 Plt Count 150 MPV 8.9 Neut # (Auto) 5.4 Lymph # (Auto) 0.9 L [place] # (Auto) 0.6 Eos # (Auto) 0.0 Baso # (Auto) 0.0 Absolute Nucleated RBC 0.00 Nucleated RBC % 0.0 Sodium 136 Potassium 3.5 Chloride 98 L Carbon Dioxide 25 Anion Gap 13.0 BUN 21 H Creatinine 0.8 Estimated GFR (MDRD) 98 Glucose 125 H Lactic Acid Calcium 9.8 Total Bilirubin 1.3 H AST 38 ALT 37 Alkaline Phosphatase 67 Total Protein 7.9 Albumin 4.8 Globulin 3.1 Albumin/Globulin Ratio 1.5 Urine Color YELLOW Urine Clarity CLEAR Urine pH 8.5 H Ur Specific [place] 1.010 Urine Protein 30 H Urine Glucose (UA) NEGATIVE Urine Ketones 15 H Urine Occult Blood NEGATIVE Urine Nitrite NEGATIVE Urine Bilirubin NEGATIVE Urine Urobilinogen 0.2 (NORMAL) Ur Leukocyte Esterase NEGATIVE Urine RBC 0-5 Urine WBC 0-3 Ur Squamous Epith Cells NONE SEEN Urine Bacteria None Seen Urine Mucus Few Strands Urine Culture Comments NOT INDICATED 08/29/20 14:10 WBC RBC Hgb Hct MCV MCH MCHC RDW Plt Count MPV Neut # (Auto) Lymph # (Auto) [place] # (Auto) Eos # (Auto) Baso # (Auto) Absolute Nucleated RBC Nucleated RBC % Sodium Potassium Chloride Carbon Dioxide Anion Gap BUN Creatinine Estimated GFR (MDRD) Glucose Lactic Acid 1.4 Calcium Total Bilirubin AST ALT Alkaline Phosphatase Total Protein Albumin Globulin Albumin/Globulin Ratio Urine Color Urine Clarity Urine pH Ur Specific [place] Urine Protein Urine Glucose (UA) Urine Ketones Urine Occult Blood Urine Nitrite Urine Bilirubin Urine Urobilinogen Ur Leukocyte Esterase Urine RBC Urine WBC Ur Squamous Epith Cells Urine Bacteria Urine Mucus Urine Culture Comments - Rads (name of study) CT abd Radiology: Final report received (A bowel and fat-containing left inguinal hernia involving a segment of the sigmoid colon. No evidence for acute inflammatory changes, wall thickening or obstruction proximal to the hernia. Extensive colonic diverticulosis without diverticulitis. Moderate fecal in colon. hepatic steatosis) PD MEDICAL DECISION MAKING - ED course Complexity details: reviewed results, re-evaluated patient, considered differential, d/w patient ED course: 60-year-old male presents emergency department for evaluation of 1 week vomiting and diarrhea. No diarrhea for the last 24 hours but he has vomited 4-5 times today. He denies abdominal pain, chest pain or shortness of breath. He was feeling weak and dehydrated. Screening labs showed no significant leukocytosis or worrisome electrolyte abnormality. Given his age and the presence of vomiting for 1 week we did proceed to do a CT of the abdomen to rule out any acute surgical causes. He does have a left inguinal hernia that does contain some bowel and fat but no evidence of strangulation. Patient is not painful in this area. He also has significant diverticulosis without evidence of diverticulitis. This gentleman was given 1 L of IV fluids as well as Zofran in the emergency department with marked resolution of symptoms. Following this he was tolerating sips of clear liquids. Patient will be discharged home with prescription for Zofran. Advised a clear liquid diet for 24 hours and then to advance slowly as tolerated. Emergent return precautions were discussed. Departure - Departure Disposition: 01 Home, Self Care Clinical Impression: Vomiting and diarrhea, Diverticulosis Inguinal hernia Qualifiers: Obstruction and gangrene presence: without obstruction or gangrene Laterality: unilateral Recurrence: not specified as recurrent Qualified Code(s): K40.90 - Unilateral inguinal hernia, without obstruction or gangrene, not specified as recurrent Condition: Stable Record reviewed to determine appropriate education?: Yes Instructions: ED Diet Brat Expanded Inf Td Prescriptions: Ondansetron Odt [Zofran] 4 mg TL Q6H PRN #10 tablet PRN Reason: Nausea / Vomiting Comments: Aamir were seen in the emergency department today for vomiting and diarrhea. Here in the emergency department your screening labs showed no significant worrisome abnormalities. We did proceed to do a CT of your abdomen that does show you have a left inguinal hernia that does contain fat and a small amount of colon. However this is not causing you any pain nor is it strangulated. Please discuss this finding with your primary care doctor. The CT scan otherwise showed that you had diverticulosis as we discussed but there is no inflammation in your intestines. The cause of your vomiting and diarrhea over the last week is not clear. If you are able to provide a stool sample here in the emergency department we will send it first testing. But since your symptoms improved after IV fluids and Zofran we are going to discharge you with a prescription for nausea medicine. Please take the Zofran 2-3 times a day over the next 24 to 48 hours. I would like you to do a clear liquid diet for the next 24 hours then slowly advance your diet as tolerated. If your symptoms worsen, you develop fevers, have bloody stool or output, suddenly severe or different abdominal pain then please return immediately to the ER.
--- OUTSIDE RECORDS SUMMARY | 2020-08-29 14:03 | EXTERNAL MEDICAL SUMMARY RPT | Continuity of Care Document ---
:1960 Demographics Phone Unavailable Preferred Language Unknown Marital Status Unknown Judaism Affiliation Unknown Race Unknown Ethnic Group Unknown Author Organization [facility] Address [address] [id number] Phone Social History date description facility [id number]
[2020-08-29 14:20] LABS: BASOPHILS % (AUTO) 0.6 %; HGB - HEMOGLOBIN 14.2 g/dL (14.0-18.0); LYMPHOCYTES # (AUTO) 0.9 10^3/uL (1.5-3.5); LYMPHOCYTES % (AUTO) 13.1 %; MEAN CORPUSCULAR HEMOGLOBIN 33.1 pg (27.0-31.0); MEAN CORPUSCULAR HGB CONC 34.6 g/dL (32.0-36.0); MEAN CORPUSCULAR VOLUME 95.6 fL (80.0-94.0); MEAN PLATELET VOLUME 8.9 fL (7.4-11.4); MONOCYTES # (AUTO) 0.6 10^3/uL (0.0-1.0); NEUTROPHILS # (AUTO) 5.4 10^3/uL (1.5-6.6); NEUTROPHILS % (AUTO) 76.7 %; PLT - PLATELET COUNT 150 10^3/uL (130-450); RED BLOOD COUNT 4.29 10^6/uL (4.70-6.10); RED CELL DISTRIBUTION WIDTH 13.5 % (12.0-15.0); WHITE BLOOD COUNT 7.1 x10^3/uL (4.8-10.8)
[2020-08-29 14:32] LABS: ALBUMIN 4.8 g/dL (3.2-5.5); ALBUMIN/GLOBULIN RATIO 1.5 (1.0-2.2); BILIRUBIN,TOTAL 1.3 mg/dL (0.2-1.0); CALCIUM 9.8 mg/dL (8.5-10.3); CREATININE 0.8 mg/dL (0.6-1.2); POTASSIUM 3.5 mmol/L (3.5-5.0); TOTAL PROTEIN 7.9 g/dL (6.7-8.2)
[2020-08-29] MEDS ORDERED: IOPAMIDOL-300 100 ML VIAL ONE (14:35)
[2020-08-29] MEDS ORDERED: IOPAMIDOL-300 100 ML VIAL IVP ONE (14:47)
[2020-08-29 14:55] LABS: BILIRUBIN,URINE NEGATIVE (NEGATIVE); CLARITY,URINE CLEAR (CLEAR); GLUCOSE, URINE (UA) NEGATIVE (NEGATIVE); KETONES,URINE (UA) 15 mg/dL (NEGATIVE); LEUKOCYTE ESTERASE, URINE NEGATIVE (NEGATIVE); NITRITE,URINE NEGATIVE (NEGATIVE); OCCULT BLOOD,URINE NEGATIVE (NEGATIVE); PH,URINE 8.5 PH (5.0-7.5); PROTEIN,URINE 30 mg/dL (NEGATIVE); UROBILINOGEN,URINE 0.2 (NORMAL) E.U./dL (NORMAL)
[2020-08-29 15:03] LABS: BACTERIA,URINE None Seen /HPF (None Seen); MUCUS,URINE Few Strands; RBC,URINE 0-5 /HPF (0-5); SQUAMOUS EPITHELIAL CELL,UR NONE SEEN (<= Few); WBC,URINE 0-3 /HPF (0-3)
--- NOTE | 2020-08-29 15:08 | CT Report ---
PROCEDURE: Abdomen/Pelvis W INDICATIONS: 1 week of n/v/d CONTRAST: IV CONTRAST: Optiray 320 ml: 100 PO CONTRAST: *NO PO CONTRAST TECHNIQUE: After the administration of weight appropriate dose of intravenous contrast, 5 mm thick sections acqu ired from the diaphragms to the symphysis. 5 mm thick coronal and sagittal reformats were acquired. For radiation dose reduction, the following was used: automated exposure control, adjustment of mA and/or kV according to patient size. COMPARISON: None. FINDINGS: Image quality: Excellent. ABDOMEN: Lung bases: Lung bases are clear. Heart size is normal. Solid organs: Liver and spleen are normal in size and enhancement. Diffuse hypoattenuation of the li leoncio compatible with hepatic steatosis. Gallbladder is unremarkable. Biliary system is non dilated. Pancreas enhances normally. No adrenal nodules. Kidneys demonstrate normal size and enhancement, wi thout hydronephrosis. Peritoneum and bowel: Extensive colonic diverticulosis without evidence for acute diverticulitis. [place] el loops demonstrate normal wall thickness and caliber. No free fluid or air. Nodes and vessels: No retroperitoneal or mesenteric adenopathy by size criteria. Aorta and inferior vena cava are normal in size. Atherosclerotic calcifications of the abdominal aorta without aneurysm al dilatation. Miscellaneous: No ventral hernias. PELVIS: Genitourinary: Bladder wall thickness is normal. Miscellaneous: No pelvic adenopathy. There is a fat and bowel containing left inguinal hernia involv ing a segment of the sigmoid colon. No evidence for wall thickening or inflammatory changes. No evide nce for obstruction proximally. There is a moderate amount of fecal material seen in the region of th e rectum and distal sigmoid colon. Bones: No suspicious bony lesions. No acute vertebral body compression fractures. IMPRESSION: 1. A bowel and fat-containing left inguinal hernia involving a segment of the sigmoid colon. No evide nce for acute inflammatory changes, wall thickening, or obstruction proximal to the hernia. 2. Extensive colonic diverticulosis without evidence for acute diverticulitis. 3. Moderate fecal material in the region of the distal sigmoid colon and rectum. 4. Hepatic steatosis. Reviewed by: Farhat Dangelo MD on 08/29/2020 3:07 PM PDT Approved by: Farhat Dangelo MD on 08/29/2020 3:07 PM PDT Station ID: [id number]
[2020-08-29 16:09] VITALS: BP 133/77
== END 2020-08-29 16:05 | disposition home or self-care (01) ==
LOC: ED 13:40
DX: R11.2 Nausea with vomiting, unspecified (principal); R19.7 Diarrhea, unspecified; K57.30 Diverticulosis of large intestine without perforation or abscess without bleeding; K40.90 Unilateral inguinal hernia, without obstruction or gangrene, not specified as recurrent; K76.0 Fatty (change of) liver, not elsewhere classified; I11.0 Hypertensive heart disease with heart failure; I50.9 Heart failure, unspecified; I44.7 Left bundle-branch block, unspecified; Z95.810 Presence of automatic (implantable) cardiac defibrillator; Z79.82 Long term (current) use of aspirin
CPT/HCPCS: 36415; 74177; 80053; 81001; 83605; 85025; 96374; 99284; Q9967; 87086

== ENCOUNTER 2024-02-08 10:13 | Day surgery (SDC) | payer MEDICARE, OTHER ==
[2024-02-08] MEDS: LACTATED RINGERS 1,000 ML IV ONE (10:53)
--- NOTE | 2024-02-08 11:28 | ANESTHESIA ---
Pre-Anesthesia VS, & Labs - Diagnosis screening - Procedure colonoscopy Vital Signs: Temp Pulse Resp BP Pulse Ox O2 Flow Rate 36.6 C 67 12 122/82 H 100 02/08/24 10:36 02/08/24 10:36 02/08/24 10:36 02/08/24 10:36 02/08/24 10:36 Height: 6 ft Weight (kg): 80 kg Body Mass Index: 23.9 BMI Classification: Normal - NPO >8 hours Last Fluid Intake: am prep - Lab Results Lab results reviewed: Yes Home Medications and Allergies Home Medications: Ambulatory Orders Mv-Min/Folic/K1/Lycopen/Lutein [Centrum Silver Men Tablet] 1 each PO DAILY 02/02/24 Aspirin 81 mg PO DAILY 01/04/18 Metoprolol Succinate 25 mg PO DAILY 01/04/18 Valsartan [Diovan] 40 mg PO DAILY 01/04/18 Atorvastatin Calcium [Lipitor] 80 mg DAILY 08/29/20 Mv-Min/Folic/K1/Lycopen/Lutein [Centrum Silver Men Tablet] 1 each PO DAILY 02/02/24 Allergies/Adverse Reactions: Allergies Allergy/AdvReac Type Severity Reaction Status Date / Time No Known Drug Allergies Allergy Verified 02/20/19 16:44 Anes History & Medical History - Anesthetic History Anesthesia Complications: reports: No previous complications Family history of Anesthesia Complications: Denies Family history of Malignant Hyperthermia: Denies - Medical History Cardiovascular: reports: Congestive heart failure (following hernia repair 2015), High cholesterol, Coronary artery disease, Other Pulmonary: reports: None Gastrointestinal: reports: None Urinary: reports: None Neuro: reports: None Musculoskeletal: reports: None Endocrine/Autoimmune: reports: None Skin: reports: None Smoking Status: Never smoker - Surgical History General: reports: Colonoscopy, Other Eyes Ears Nose Throat (EENT): reports: Cataracts, Tonsil/Adenoidectomy Cardiothoracic: reports: Pacemaker, AICD Exam General: Alert, Oriented x3, Cooperative Dental: WNL Mouth Openin Fingerbreadth Neck Mobility: Normal Mallampati classification: II Thyromental Distance: 4-6 cm Respiratory: Lungs clear, Normal breath sounds, No respiratory distress Cardiovascular: Regular rate, Other (100% vpace at 60 (AICD)) Neurological: Normal speech Mental/Cognitive Status: Alert/Oriented X3, Normal for patient Cognitive Status: Within normal limits Plan Anesthesia Type: Total IV Consent for Procedure(s) Verified and Reviewed: Yes Code Status: Attempt Resuscitation ASA classification: 3-Severe systemic disease Is this case an emergency?: No
[2024-02-08] MEDS ORDERED: PROPOFOL 500 MG/50 ML 500 MG/50 ML VIAL ONE (11:39)
[2024-02-08] MEDS ORDERED: MIDAZOLAM 2 MG/2 ML VIAL ONE (11:39)
[2024-02-08] MEDS ORDERED: LIDOCAINE-MPF 2% 5 ML VIAL ONE (12:23)
[2024-02-08] MEDS: LACTATED RINGERS 200 ML IV ONE ×2 (12:26→12:53)
--- NOTE | 2024-02-08 12:33 | ANESTHESIA POST OP EVALUATION ---
Anesthesia Post Eval - Post Anesthesia Eval Vitals: Last Vital Signs Temp 36.6 C 02/08/24 10:36 Pulse 67 02/08/24 10:36 Resp 12 02/08/24 10:36 BP 122/82 H 02/08/24 10:36 Pulse Ox 100 02/08/24 10:36 O2 Flow Rate CV Function Including HR & BP: Stable Pain Control: Satisfactory Nausea & Vomiting: Negative Mental Status: Baseline Respiratory Status: Airway Patent Hydration Status: Satisfactory Anesthesia Complications: None
[2024-02-08 12:58] VITALS: BP 106/69; O2SAT 98
== END 2024-02-08 10:14 | disposition home or self-care (01) ==
LOC: SDS 10:13
PROVIDERS: ATTEND Surgery
PROC: 0DBK8ZZ Excision of Ascending Colon, Via Natural or Artificial Opening Endoscopic (ICD-10-PCS; principal; 2024-02-08 11:30)
DX: Z12.11 Encounter for screening for malignant neoplasm of colon (principal); D12.2 Benign neoplasm of ascending colon; K57.30 Diverticulosis of large intestine without perforation or abscess without bleeding; K64.4 Residual hemorrhoidal skin tags; K64.2 Third degree hemorrhoids; I11.0 Hypertensive heart disease with heart failure; I50.9 Heart failure, unspecified; I44.7 Left bundle-branch block, unspecified; Z87.891 Personal history of nicotine dependence
CPT/HCPCS: 45385; J7120